=== PATIENT | male | born 1965 | race Caucasian/White ===

== ENCOUNTER → 2019-01-20 | Outpatient (CLI) | payer BC, OTHER ==
--- NOTE | 2019-01-20 15:20 | 2DMMODE ---
[facility] [address] [place] [address] 2 D/M-MODE ECHOCARDIOGRAM Name: STARRGINGER Suleiman Room #: REG [facility]#: [id number] Admission: 01/20/19 Attend Phys: Pradeep Levy MD Discharge: Date of : 63 Report #: [id number] THIS REPORT FOR: //name// APPROVED REPORT Study performed: 01/20/2019 13:37:09 EXAM: Comprehensive 2D, Doppler, and color-flow Echocardiogram Patient Location: Out-Patient Room #: Echo lab 2 Status: routine BSA: 1.94 HR: 83 bpm BP: 130/78 mmHg Rhythm: NSR Other Information Study Quality: Good Indications Abnormal ECG Hypertension/HDD 2D Dimensions IVSd: 12.37 (7-11mm) LVOT Diam: 22.92 (18-24mm) LVDd: 49.96 mm PWd: 11.65 (7-11mm) Ascending Ao: 31.17 (22-36mm) LVDs: 31.88 (25-40mm) Aortic Root: 37.22 mm IVC: 14.00 mm Volumes Left Atrial Volume (Systole) Single Plane 4CH: 51.36 mL Single Plane 2CH: 42.86 mL LA ESV Index: 28.00 mL/m2 Aortic Valve AoV Peak Garcia.: 1.27 m/s AO Peak Gr.: 6.47 mmHg LVOT Max P.35 mmHg LVOT Max V: 1.16 m/s RACHNA Vmax: 3.75 cm2 Mitral Valve E/A Ratio: 0.8 MV Decel. Time: 212.54 ms MV E Max Garcia.: 0.64 m/s [facility] [address] [address] 2 D/M-MODE ECHOCARDIOGRAM Name: GINGER STARR Room #: [facility]#: [id number] Admission: 01/20/19 Attend Phys: Pradeep Levy MD Discharge: Date of : 63 Report #: [id number] MV A Garcia.: 0.77 m/s MV PHT: 61.64 ms IVRT: 115.34 ms Pulmonary Valve PV Peak Garcia.: 0.93 m/s PV Peak Gr.: 3.45 mmHg Pulmonary Vein P Vein S: 0.64 m/s P Vein A: 0.29 m/s P Vein D: 0.60 m/s P Vein A Dur.: 96.9 msec P Vein S/D Ratio: 1.07 Left Ventricle The left ventricle is normal size. There is normal LV segmental wall motion. Mild concentric left ventricular hypertrophy. The left ventricular systolic function is normal. The left ventricular ejection fraction is within the normal range. LVEF is 55-60%. Grade I - abnormal relaxation pattern. Right Ventricle The right ventricle is normal size. The right ventricular systolic function is normal. Atria The left atrium size is normal. The right atrium size is normal. Aortic Valve The aortic valve is normal in structure. No aortic regurgitation is present. There is no aortic valvular stenosis. Mitral Valve The mitral valve is normal in structure. There is no mitral valve regurgitation noted. No evidence of mitral valve stenosis. Tricuspid Valve The tricuspid valve is normal in structure. There is no tricuspid valve regurgitation noted. Pulmonic Valve The pulmonary valve is normal in structure. There is no pulmonic valvular regurgitation. Great Vessels The aortic root is normal in size. IVC is normal in size and collapses >50% with inspiration. [facility] [address] [place] [address] 2 D/M-MODE ECHOCARDIOGRAM Name: GINGER STARR Room #: [facility]#: [id number] Admission: 01/20/19 Attend Phys: Pradeep Levy MD Discharge: Date of : 63 Report #: [id number] Pericardium There is no pericardial effusion. <Conclusion> The left ventricle is normal size. Mild concentric left ventricular hypertrophy. The left ventricular systolic function is normal. Grade I - abnormal relaxation pattern. The right ventricle is normal size. The left atrium size is normal. The aortic valve is normal in structure. There is no mitral valve regurgitation noted. There is no tricuspid valve regurgitation noted. <ELECTRONICALLY SIGNED> By: Pradeep Levy MD 01/20/19 1520 1520 19 Pradeep Levy MD /TAYLOR
--- NOTE | 2019-01-20 15:23 | EXE ---
[facility] [address] [address] STRESS ECHOCARDIOGRAM Name: GINGER STARR [id number] Admission: 01/20/19 Attend Phys: Pradeep Levy MD Discharge: Date of : 63 Report #: [id number] THIS REPORT FOR: //name// APPROVED REPORT Study performed: 01/20/2019 14:08:44 Exam: Stress Echocardiogram Indication: Hypertension Patient Location: Out-Patient Stress Nurse: FRANKY Room #: Echo lab 2 Status: routine Ht: 5 ft 11 in HR: 90 bpm BP: 130/78 mmHg Rhythm: NSR Medical History Medical History: HTN Cardiac Risk Factors: FHX of CAD, HTN Exercise History: Physically active Procedure The patient underwent an Exercise Stress Test using the Jovan Protocol. Blood pressure, heart rate, and EKG were monitored. An Echocardiogram was performed by automotive specialty technician in four stages in quad fashion. At peak stress, four selected images were obtained and placed side by side with resting images for comparison. Stress Test Details Stress Test: Exercise stress testing was performed using a Jovan protocol. HR Resting HR: 90 bpm Max Heart Rate (APMHR): 166 bpm Max HR Achieved: 169 bpm Target HR (85% APMHR): 141 bpm % of APMHR: 101 Recovery HR: 90 bpm HR response to stress: Normal HR response to stress BP Resting BP: 130/78 mmHg Max BP: 160/72 mmHg Recovery BP: 158/68 mmHg BP response to stress: Normal blood pressure response to [facility] [address] [place] [address] STRESS ECHOCARDIOGRAM Name: GINGER STARR Room #: REG [facility]#: [id number] Admission: 01/20/19 Attend Phys: Pradeep Levy MD Discharge: Date of : 63 Report #: [id number] stress. ECG Resting ECG: Sinus Rhythm Stress ECG: Sinus Rhythm, nonspecific ST-T abnormalities ST Change: Non-ischemic Clinical Reason for Termination: Maximal effort Exercise duration: 12 min 45 sec Highest Stage Achieved: Stage 5: 5.0 mph at 18% grade. Exercise capacity: 15.1 METs Overall Exercise Capacity for Age: Good Scale: Active Pre-Stress Echo The resting Echocardiogram showed normal left ventricular contractility with an estimated Ejection Fraction of about >55%. The resting echocardiogram demonstrated normal wall motion in all wall segments. Normal wall motion in all segments on baseline images. Post-Stress Echo The stress Echocardiogram showed normal left ventricular contractility with an estimated Ejection Fraction of about 65-70%. Compared to rest, there were no stress-induced wall motion abnormalities. Clinical No clinical or ECG evidence for ischemia. Conclusion Clinical Response: Non-ischemic Exercise Capacity: Above average Stress ECG Response: Non-ischemic Stress Echo Images: Non-ischemic The left ventricle is normal in size and wall thickness in both the rest and stress images. No prior study available for comparison. <Conclusion> The left ventricle is normal in size and wall thickness in both the rest and stress images. <ELECTRONICALLY SIGNED> By: Pradeep Levy MD 01/20/19 1523 1523 1523 Pradeep Levy MD /INF
== END ==
LOC: CV 09:20
DX: R06.09 Other forms of dyspnea (principal); I11.9 Hypertensive heart disease without heart failure